=== PATIENT | female | born 1950 | race Caucasian/White ===

== ENCOUNTER → 2018-02-01 | Outpatient (CLI) | payer MEDICARE ==
--- NOTE | 2018-02-04 09:07 | RAD ---
DATE: 02/01/2018 EXAM: MAMMO [facility] DIAG BILAT HISTORY: Follow-up left breast cysts COMPARISON: 08/06/2017, 12/15/2016 This study was interpreted with the benefit of Computerized Aided Detection (CAD). Breast Density: HETERO The breast parenchyma is heterogenously dense, which could reduce sensitivity of mammography. Breast parenchyma level C. FINDINGS: 2-D and 3-D tomosynthesis imaging was performed in CC and MLO projections. There is a 2 cm smooth nodule in the lateral aspect of the right breast compatible with one of the patient's known cysts. A similar appearance was present on the 12/15/2016 exam. There are more numerous small smooth nodules in the left breast, most prominent laterally. Some of these have increased slightly in size. The features are compatible with additional cysts. No spiculated mass or architectural distortion is seen. Scattered benign type calcifications are again noted. No suspicious microcalcifications have developed. IMPRESSION: 1. Multiple bilateral breast cysts, some of which on the left have increased in size. 2. No mammographic evidence of malignancy in either breast. 3. Routine yearly mammographic follow-up is suggested. BI-RADS CATEGORY: 2 BENIGN FINDING(S) RECOMMENDED FOLLOW-UP: 12M 12 MONTH FOLLOW-UP PQRS compliance statement: Patient information was entered into a reminder system with a target due date for the next mammogram. Mammography is a sensitive method for finding small breast cancers, but it does not detect them all and is not a substitute for careful clinical examination. A negative mammogram does not negate a clinically suspicious finding and should not result in delay in biopsying a clinically suspicious abnormality. "Our facility is accredited by the [employer] Mammography Program."
== END | disposition home or self-care (01) ==
LOC: MAMMO 13:45
PROVIDERS: ATTEND Obstetrics & Gynecology
DX: N60.02 Solitary cyst of left breast (principal); N60.01 Solitary cyst of right breast; R92.1 Mammographic calcification found on diagnostic imaging of breast
CPT/HCPCS: 77066; G0279; 77062